=== PATIENT | male | born 1945 | race Caucasian/White ===

== ENCOUNTER 2017-01-07 12:21 | Day surgery (SDC) | payer MEDICARE ==
[~2017-01-07] VITALS: Ht 190.5 cm; Wt 98.9 kg
[~2017-01-07 12:21] MED LIST: 0.9% Sodium Chloride 1,000 ML IV SCH; DICY10CA56 PO; DOCU240C41 PO; PANT40TA3 PO; Sodium Chloride LOK Flush 10 mL Syringe IV PRN; WARF4TAB6 PO; WARF5TAB7 PO; fentaNYL-PF 50 mCg/mL 2 mL Inj IVPUSH PRN
[2017-01-07 13:00] VITALS: BP 155/82; PULSE 76; RESP 14; O2SAT 100
[2017-01-07 14:02] VITALS: BP 113/69; PULSE 61; RESP 14; O2SAT 100
[2017-01-07 14:12] VITALS: BP 109/65; PULSE 70; RESP 16; O2SAT 97
[2017-01-07 14:22] VITALS: BP 136/75; PULSE 66; RESP 16; O2SAT 98
--- NOTE | 2017-01-09 16:39 | PATH ---
SURGICAL PATHOLOGY Attending Physician:Hilario Fam MD CASE STATUS: Signed Out PATIENT NAME: CHAUNCEY CLEMENTS PID: [id number] : 1945 DATE COLLECTED:01/07/2017 00:00 SPECIMEN: 1: Duodenum, Biopsy 2: Stomach, Antrum, Biopsy 3: Gastric, Biopsy 4: Esophagus, Biopsy CLINICAL HISTORY: GERD, CONSTIPATION 1). DUODENUM BIOPSY 2). ANTRUM BIOPSY 3). GASTRIC BODY BIOPSY 4). DISTAL ESOPHAGUS BIOPSY FINAL DIAGNOSIS: 1.DUODENUM, BIOPSY: DUODENAL MUCOSA WITH NO DIAGNOSTIC ABNORMALITY. Negative for active inflammation, features of sprue, dysplasia, and malignancy. 2.ANTRUM, BIOPSY: PORTIONS OF GASTRIC ANTRAL AND BODY-TYPE MUCOSA WITH NO DIAGNOSTIC ABNORMALITY. No H. pylori organisms identified by H&E stain. Negative for intestinal metaplasia. Negative for dysplasia and malignancy. 3.GASTRIC BODY, BIOPSY: PORTIONS OF GASTRIC BODY-TYPE MUCOSA WITH NO DIAGNOSTIC ABNORMALITY. No H. pylori organisms identified by H&E stain. Immunohistochemistry studies pending; results will be reported as an addendum. Negative for intestinal metaplasia. Negative for dysplasia and malignancy. 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 Negative for dysplasia and malignancy. ICD10 K22.7 GROSS DESCRIPTION: The specimen is received in four formalin filled containers labeled with the patient's name. 1). The specimen is labeled "duodenum" and consists of 2 portions of tissue which aggregate to 0.3 x 0.3 x 0.2 CM. The specimen is entirely submitted in cassette 1A. 2). The specimen is labeled "antrum" and consists of 2 portions of tissue which aggregate to 0.2 x 0.2 x 0.2 CM. The specimen is entirely submitted in cassette 2A. 3). The specimen is labeled "gastric body" and consists of 2 portions of tissue which aggregate to 0.2 x 0.2 x 0.2 CM. The specimen is entirely submitted in cassette 3A. 4). The specimen is labeled "distal esophagus" and consists of 2 portions of tissue which aggregate to 0.2 x 0.2 x 0.2 CM. The specimen is entirely submitted in cassette 4A. 01/08/2017DC MICRO DESCRIPTION: See diagnosis. ICD-9 CODES: CPT CODES: 1: 33548 2: 24298 3: 25318, 41023 4: 26236 PROCEDURE/ADDENDA: Immunohistochemistry SPI Interpretation {Not Entered} Results-Comments 3.GASTRIC BODY, BIOPSY:An immunohistochemical stain was performed to evaluate for Helicobacter organisms and is negative. A control stain showed appropriate reactivity. This test was developed and its performance characteristics determined by [facility]. It has not been cleared or approved by the [place]. Food and Drug Administration. The FDA has determined that such clearance or approval is not necessary. This test is used for clinical purposes. It should not be regarded as investigational or for research. Electronically Signed Out Temi Crawford MD Electronically Signed Out Temi Crawford MD [facility] [address], [place] [address] Technical component performed at [facility], [address], [place], [address]
--- NOTE | 2017-01-10 14:00 | ENDO ---
[address] [address] ENDOSCOPY PROCEDURE PATIENT: CHAUNCEY CLEMENTS : 1945 MR#: [id number] ADMIT: 01/07/2017 JOB ID: [id number] DATE OF SERVICE: 01/07/2017 PROCEDURE: Esophagogastroduodenoscopy with biopsy and colonoscopy. PREOPERATIVE DIAGNOSIS(ES): Gastroesophageal reflux disease, constipation, abdominal pain. POSTOPERATIVE DIAGNOSIS(ES): 1. Small hiatal hernia. 2. Irregular Z-line. 3. Normal colonoscopy. ANESTHESIA: Fentanyl and Versed administered. COMPLICATIONS: None. BLOOD LOSS: Minimal. DESCRIPTION OF PROCEDURE: After risks and benefits explained to the patient, informed consent was obtained. After anesthesia administered, upper endoscope was inserted in mouth, intubated to the esophagus, stomach, second portion of duodenum. Mucosa carefully examined. After the scope withdrawn, the procedure terminated. Colonoscope was inserted from the rectum to the cecum. Mucosa carefully examined. Prep of the patient was fair. After the scope withdrawn, procedure terminated. FINDINGS: Upon inspection of the esophagus, the esophagus was normal without masses, ulcers, or lesions, except for an irregular Z-line. The Z-line located 40 cm from incisors. Upon entering the stomach, the stomach also appeared normal without masses, ulcers, or lesions. Retroflexion showed small hiatal hernia. Duodenal bulb, first and second portion were normal. Biopsies taken at duodenum, antrum, body and distal esophagus. Upon inspection of the anus, no masses, hemorrhoids, ulcers, or fissures that were seen. Throughout the entire examination, there were no polyps, masses, or lesions. Retroflexion was normal. IMPRESSION: 1. Normal colonoscopy. 2. Small hiatal hernia. 3. Irregular Z-line. RECOMMENDATIONS: 1. Await pathology results. 2. Follow up in GI clinic as needed.
== END 2017-01-07 23:59 | disposition home or self-care (01) ==
LOC: END 12:21
PROVIDERS: ATTEND Internal Medicine Gastroenterology
DX: K59.00 Constipation, unspecified (principal); K21.9 Gastro-esophageal reflux disease without esophagitis; R10.13 Epigastric pain; K44.9 Diaphragmatic hernia without obstruction or gangrene; Z86.711 Personal history of pulmonary embolism; Z86.718 Personal history of other venous thrombosis and embolism; Z79.01 Long term (current) use of anticoagulants
CPT/HCPCS: 43239; 99153; G0121; G0500; J2250; J3010; J7030